=== PATIENT | female | born 1970 | race African-American/Black ===

== ENCOUNTER 2020-09-13 11:31 | Emergency (ER) | payer OTHER ==
[~2020-09-13] VITALS: Ht 162.6 cm; Wt 78.5 kg
[2020-09-13 12:13] LABS: ABSOLUTE BASOPHILS 0.1 thou/uL (0.0-0.2); ABSOLUTE EOSINOPHILS 0.1 thou/uL (0.0-0.7); ABSOLUTE LYMPHOCYTES 1.5 thou/uL (0.8-5.3); ABSOLUTE MONOCYTES 0.4 thou/uL (0.0-1.2); ABSOLUTE NEUTROPHILS 2.8 thou/uL (1.6-8.1); BASOPHILS 1.1 %; EOSINOPHILS 1.3 %; HEMATOCRIT 44.7 % (37.0-47.0); HEMOGLOBIN 15.1 gm/dL (12.0-15.0); LYMPHOCYTES 30.2 %; MCH 30.8 pg (26.0-34.0); MCHC 33.7 g/dL (28.0-37.0); MCV 91.2 fL (80.0-100.0); MONOCYTES 8.6 %; MPV 9.1 fl. (7.2-11.1); NUCLEATED RBCS 0 /100WBC; PLATELET COUNT* 228 thou/uL (150-400); POLYS 58.8 %; RBC 4.91 mil/uL (4.20-5.00); RDW-CV 13.2 % (10.5-14.5); WBC 4.8 thou/uL (4.0-11.0)
[2020-09-13 12:22] LABS: CALCIUM 9.5 mg/dL (8.5-10.1); CREATININE 0.9 mg/dL (0.6-1.3); POTASSIUM 3.6 mmol/L (3.5-5.1)
[2020-09-13 12:32] LABS: ALBUMIN 4.4 g/dL (3.4-5.0); DIRECT BILIRUBIN 0.2 mg/dL (<0.1-0.3); TOTAL BILIRUBIN 1.2 mg/dL (<0.1-1.0); TOTAL PROTEIN 8.4 g/dL (6.4-8.2)
[2020-09-13 12:33] LABS: URINE BILIRUBIN NEGATIVE (Negative); URINE BLOOD NEGATIVE (Negative); URINE CLARITY CLEAR; URINE COLOR YELLOW; URINE GLUCOSE-RANDOM NEGATIVE (Negative); URINE KETONES NEGATIVE (Negative); URINE LEUKOCYTES NEGATIVE (Negative); URINE NITRITE NEGATIVE (Negative); URINE PROTEIN NEGATIVE (Negative); URINE UROBILINOGEN 0.2 E.U./dl (0.2-1.0)
[2020-09-13] MEDS ORDERED: NAPROSYN500 MG PO (14:55)
[2020-09-13] MEDS ORDERED: TYLENOL325 M1 PO (14:55)
[2020-09-13 15:10] VITALS: BP 150/84
--- NOTE | 2020-09-13 17:39 | EKG ---
[place] [address] ELECTROCARDIOGRAM REPORT Name: IRAIS VALDEZ Room: [facility]#: [id number] Admission: 09/13/20 Attend Phys: Discharge: 09/13/20 Date of : 74 Date of Service: 09/13/20 1140 Report #: [id number] THIS REPORT FOR: //name// [facility] ED Test Date: 2020-09-13 Test Time: 11:40:55 Pat Name: IRAIS VALDEZ Department: Room: Gender: F Director Electronics: TEENA : 1970 Requested By: Donavan Arnold Order Number: [id number] MD: Dexter Mcdonnell Measurements Intervals [place] Rate: 69 P: 33 [place]: 130 QRS: 5 QRSD: 90 T: -9 QT: 377 QTc: 404 Interpretive Statements Sinus rhythm Nonspecific T abnormalities, inferior leads Baseline wander in lead(s) II,III,aVR,aVL,aVF No previous ECG available for comparison Electronically Signed On 09-13-2020 17:39:12 [employer] by Dexter Mcdonnell [email or web address] <ELECTRONICALLY SIGNED> By: Dexter Mcdonnell MD, FACC 09/13/20 1739 1140 1140 Dexter Mcdonnell MD, [facility] /EPI
== END 2020-09-13 15:12 | disposition home or self-care (01) ==
LOC: M.ERS 11:31
PROVIDERS: Emergency Medicine
DX: S46.812A Strain of other muscles, fascia and tendons at shoulder and upper arm level, left arm, initial encounter (principal); I10 Essential (primary) hypertension; R07.89 Other chest pain; M54.5 Low back pain; Z88.8 Allergy status to other drugs, medicaments and biological substances; W10.8XXA Fall (on) (from) other stairs and steps, initial encounter; Y93.89 Activity, other specified; Y92.89 Other specified places as the place of occurrence of the external cause; Y99.8 Other external cause status